=== PATIENT | female | born 1995 | race Caucasian/White ===

== ENCOUNTER 2019-06-13 20:41 | Emergency (ER) | payer OTHER ==
[~2019-06-13] VITALS: Ht 157.5 cm; Wt 82.6 kg
[2019-06-13 20:54] VITALS: BP 125/78
--- NOTE | 2019-06-13 20:58 | NUR ---
PT AMBULATED TO LOBBY. ACCOMPANIED BY .
--- NOTE | 2019-06-13 21:44 | NUR ---
PT AMBULATED TO ER BED 03
--- NOTE | 2019-06-13 21:56 | NUR ---
23 Y/O FEMALE BIB C/O HIVES ON TRUNK AND X4 EXTRMITIES X3 DAYS. SEEN AT URGENT CARE X3 DAYS AGO. GIVEN BENADRYL WITH NO RELIEF. HIVES PRESENT. STATES "FEELING HOT," BURNING/ITCHING. AFEBRILE WITH VSS. DENIES NEW CONTACT WITH CHEMICALS OR FOOD. DENIES ALLERGIES. ER MD TO SEE PATIENT. SIDE RAILS X1. AT BEDSIDE. PMH:NONE NKDA RX:NONE
[2019-06-13] MEDS ORDERED: predniSONE 20 MG TAB PO ONE (22:35)
[2019-06-13] MEDS ORDERED: diphenhydrAMINE 50 MG CAP PO ONE (22:35)
--- NOTE | 2019-06-13 23:28 | NUR ---
Patient discharged with v/s stable. Written and verbal after care instructions given and explained. Patient alert, oriented and verbalized understanding of instructions. Ambulatory with steady gait. All questions addressed prior to discharge. ID band removed. Patient advised to follow up with PMD. Rx of BENADRYL 25MG AND PREDNISONE 50MG given. Patient educated on indication of medication including possible reaction and side effects. Opportunity to ask questions provided and answered.
[2019-06-13 23:32] VITALS: BP 125/78
== END 2019-06-13 23:28 | disposition home or self-care (01) ==
LOC: MED 20:41
DX: L25.9 Unspecified contact dermatitis, unspecified cause (principal)
CPT/HCPCS: 99283; J7512; Q0163

== ENCOUNTER 2020-04-18 07:50 | Emergency (ER) | payer OTHER, SELFPAY ==
[~2020-04-18] VITALS: Ht 154.9 cm; Wt 81.6 kg
[2020-04-18 07:58] VITALS: BP 128/84
--- NOTE | 2020-04-18 08:07 | NUR ---
COVID SWAB DONE.
--- NOTE | 2020-04-18 08:22 | NUR ---
C/O COUGH, FEVER, SORE THROAT X YESTERDAY. TEMP 98.1, P115, R20,O2SAT 98%, BP 128/84 AT THIS TIME. MED HX: DENIES
--- NOTE | 2020-04-18 08:36 | NUR ---
Patient being evaluated by physician in triage tent.
[2020-04-18] MEDS ORDERED: ACETAMINOPHEN EXTRA STRENGTH 500 MG TAB PO ONE (08:50)
[2020-04-18] MEDS ORDERED: NACL 0.9% 1,000 ML IV ONE (08:50)
--- NOTE | 2020-04-18 08:59 | NUR ---
PT AMBULATED TO BED 10, UNABLE TO GIVE URINE AT THIS TIME
--- NOTE | 2020-04-18 09:56 | NUR ---
IV REMOVED, 2X2 GAUZE PLACED.
--- NOTE | 2020-04-18 09:58 | NUR ---
PT AMBULATED TO RESTROOM, URINE COLLECTED AT THIS TIME
[2020-04-18 10:30] VITALS: BP 106/69
--- NOTE | 2020-04-18 10:31 | NUR ---
Patient discharged with v/s stable. Written and verbal after care instructions given and explained. Patient alert, oriented and verbalized understanding of instructions. Ambulatory with steady gait. All questions addressed prior to discharge. ID band removed. Patient advised to follow up with PMD. Rx of TYLENOL EXTRA STRENGTH 500MG given. Patient educated on indication of medication including possible reaction and side effects. Opportunity to ask questions provided and answered.
== END 2020-04-18 10:31 | disposition home or self-care (01) ==
LOC: MED 07:50 → EEVIPCON 07:50 → MED 10:31
DX: R50.9 Fever, unspecified (principal); M79.10 Myalgia, unspecified site; R05 Cough; Z20.828 Contact with and (suspected) exposure to other viral communicable diseases
CPT/HCPCS: 81002; 81025; 99283; J7030; U0003

== ENCOUNTER 2020-10-30 22:38 | Emergency (ER) | payer OTHER, SELFPAY ==
[~2020-10-30] VITALS: Ht 160 cm; Wt 83.5 kg
[2020-10-30 22:49] VITALS: BP 122/74
[2020-10-30] MEDS ORDERED: MAGNESIUM CITRATE 300 ML BTL PO ONE (22:55)
--- NOTE | 2020-10-30 23:03 | NUR ---
PT TAKEN TO CHAIR A
[2020-10-30 23:30] VITALS: BP 122/74
--- NOTE | 2020-10-30 23:30 | NUR ---
Patient discharged with v/s stable. Written and verbal after care instructions given and explained. Patient verbalized understanding. Ambulatory with steady gait. All questions addressed prior to discharge. Advised to follow up with PMD.
== END 2020-10-30 23:30 | disposition home or self-care (01) ==
LOC: MED 22:38
DX: O26.891 Other specified pregnancy related conditions, first trimester (principal); K59.00 Constipation, unspecified; Z3A.01 Less than 8 weeks gestation of pregnancy
CPT/HCPCS: 99282

== ENCOUNTER 2020-11-01 23:51 | Emergency (ER) | payer OTHER ==
[~2020-11-01] VITALS: Ht 165.1 cm; Wt 80.7 kg
[2020-11-02 00:07] VITALS: BP 114/86
--- NOTE | 2020-11-02 00:10 | NUR ---
GUILLERMINA ASSESING PATIENT IN TRIAGE.
[2020-11-02] MEDS ORDERED: MAGNESIUM CITRATE 300 ML BTL PO ONE (00:25)
--- NOTE | 2020-11-02 01:10 | NUR ---
CALLED BACK PATIENT FROM LOBBY, NO RESPONSE.
--- NOTE | 2020-11-02 01:39 | NUR ---
CALLED BACK PATIENT FROM LOBBY, NO RESPONSE.
[2020-11-02 01:50] VITALS: BP 114/86
--- NOTE | 2020-11-02 01:50 | NUR ---
PATIENT ELOPED FROM FACILITY. DISCHARGE INSTRUCTIONS NOT GIVEN TO PATIENT. DR. NAVARRO NOTIFIED. PATIENT LEFT WOTHOUT D/C PAPERWORK.
--- NOTE | 2020-11-02 01:50 | NUR ---
CALLED PATIENT BACK A THRID TIME, NO RESPONSE. MEDICATION NOT GIVEN PATIENT D/C BY ERMD , LEFT WITHOUT PAPERWORK.
== END 2020-11-02 01:50 | disposition home or self-care (01) ==
LOC: MED 23:51
DX: O26.891 Other specified pregnancy related conditions, first trimester (principal); K59.00 Constipation, unspecified; Z3A.01 Less than 8 weeks gestation of pregnancy
CPT/HCPCS: 99281